=== PATIENT | female | born 1985 | race African-American/Black ===

== ENCOUNTER 2017-05-16 22:10 | Emergency (ER) | payer BC, OTHER ==
[~2017-05-16] VITALS: Ht 160 cm; Wt 56.5 kg
[2017-05-16 22:14] VITALS: Ht 160 cm; Wt 56.5 kg
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
[2017-05-17] MEDS ORDERED: ACET500C5 PO (02:08)
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
[2017-05-17 02:39] VITALS: BP 133/73; PULSE 80; RESP 16
[2017-05-29] MEDS ORDERED: CLIN-73 PO (00:35)
[2017-05-29] MEDS ORDERED: IBUP-1542 PO (00:35)
[2017-05-29] MEDS ORDERED: ACET500C5 PO (00:35)
== END 2017-05-17 02:40 | disposition home or self-care (01) ==
LOC: FTE 22:10
DX: S80.11XA Contusion of right lower leg, initial encounter (principal); S19.9XXA Unspecified injury of neck, initial encounter; V49.40XA Driver injured in collision with unspecified motor vehicles in traffic accident, initial encounter
CPT/HCPCS: 72040; 73590

== ENCOUNTER 2017-05-28 20:21 | Emergency (ER) | END 2017-05-29 01:45 | disposition home or self-care (01) | DX: L03.211 Cellulitis of face (principal); K04.7 Periapical abscess without sinus; K01.1 Impacted teeth | CPT/HCPCS: 36415; 70486; 80053; 81001; 83605; 85025; 87040; 96374; 96375; 99285; J1885; J2543; J7030 ==